=== PATIENT | male | born 1955 | race Caucasian/White ===

== ENCOUNTER 2019-09-24 17:51 | Inpatient (IN) ==
[2019-09-24] MEDS ORDERED: SODIUM CHLORIDE 0.9% 1,000 ML IV STA (18:27)
[2019-09-24 18:51] LABS: Basophils % 0.1 % (0.0-0.8); Eosinophils % 0.1 % (0.00-10.9); Hematocrit 28.2 VOL% (42.0-52.0); Hemoglobin 8.1 GM/DL (14.0-18.0); Immature Granulocytes % 0.9 %; Immature Granulocytes Absolute 0.13 #; Lymphocytes # 0.9 10*3/uL (1.4-4.0); Lymphocytes % 5.7 % (21.2-54.2); Mean Corpuscular HGB Conc 28.7 GM/DL (32-36); Mean Corpuscular Volume 78.8 FL (87-102); Monocytes % 11.6 % (1.7-12.7); NRBC # 0.69 10*3/uL; Neutrophils % 81.6 % (38.7-73.9); Platelet Count 239 T/CUMM (130-400); Red Blood Count 3.58 MC/CUMM (3.8-5.5); Red Cell Distribution Width 19.6 % (9.3-17.3); White Blood Count 15.2 T/CUMM (4-12)
[2019-09-24 19:07] LABS: Albumin 2.7 G/DL (3.4-5.0); Bilirubin,Total 0.4 MG/DL (0.2-1.0); Calcium 9.4 MG/DL (8.5-10.1); Osmolality,Calculated 268.4 MOS/KG (273-304); Total Protein 7.5 G/DL (6.4-8.3)
[2019-09-24 19:43] LABS: Lymphocytes 8 % (20-55); Nucleated Red Blood Cells 3 (0-5); Segmented Neutrophils 81 % (50-85); Total Cells Counted 100
[2019-09-24 19:50] LABS: Anisocytosis 3+; Poikilocytosis 2+
[2019-09-24 19:51] LABS: Hypochromasia 1+; Microcytosis 1+
[2019-09-24 19:52] LABS: Platelet Estimate Normal
[2019-09-24 19:53] LABS: Basophilic Stippling Few; Howell-Jolly Bodies Few; Polychromasia 1+
[2019-09-24 19:54] LABS: Ovalocytes Few; Schistocytes Few
[2019-09-24 19:55] LABS: Atypical Lymphocytes Few
[2019-09-24 20:27] LABS: Apearance,Urine CLOUDY (Clear); Bacteria,Urine Many /HPF (Few); Bilirubin,Urine Small mg/dL (Negative); Blood, Urine Small mg/dL (Negative); Glucose,Urine (UA) Negative (Negative); Ketones,Urine Negative (Negative); Mucus,Urine Few /LPF (Occasional); Nitrite,Urine Negative (Negative); Protein,Urine 30 MG/DL; RBC,Urine 6 /HPF (0-4); Urine Color Dark Yellow (Yellow); Urine Specific Gravity 1.019 (1.001-1.035); WBC,Urine 172 /HPF (0-6)
[2019-09-24] MEDS ORDERED: PIPERACILLIN/TAZOBACTAM 3,375 MG in SODIUM CHLORIDE 0.9% 100 ML IV STA (20:32)
[2019-09-24] MEDS ORDERED: ONDANSETRON 4 MG/2 ML VIAL IV PRN (23:56)
[2019-09-24] MEDS ORDERED: ACETAMINOPHEN 325 MG TABLET PO PRN (23:56)
[2019-09-24] MEDS ORDERED: hydrALAZINE 20 MG/1 ML VIAL IV PRN (23:56)
[2019-09-25 01:14] LABS: Albumin 2.2 G/DL (3.4-5.0); Bilirubin,Total 0.5 MG/DL (0.2-1.0); Calcium 8.9 MG/DL (8.5-10.1); Osmolality,Calculated 269.5 MOS/KG (273-304); Total Protein 6.6 G/DL (6.4-8.3)
[2019-09-25 01:45] LABS: INR 1.1; PT Patient Result 12.3 SECS (9.6-12.2); Partial Thromboplastin Time 37.3 SECS (20.8-36.0)
[2019-09-25 01:46] LABS: Basophils % 0.2 % (0.0-0.8); Eosinophils % 0.1 % (0.00-10.9); Hematocrit 25.2 VOL% (42.0-52.0); Hemoglobin 7.4 GM/DL (14.0-18.0); Immature Granulocytes Absolute 0.14 #; Lymphocytes # 0.7 10*3/uL (1.4-4.0); Lymphocytes % 5.1 % (21.2-54.2); Mean Corpuscular HGB Conc 29.4 GM/DL (32-36); Mean Corpuscular Volume 80.3 FL (87-102); NRBC # 0.64 10*3/uL; Neutrophils % 83.6 % (38.7-73.9); Platelet Count 260 T/CUMM (130-400); Red Blood Count 3.14 MC/CUMM (3.8-5.5); Red Cell Distribution Width 19.9 % (9.3-17.3); White Blood Count 14.6 T/CUMM (4-12)
[2019-09-25] MEDS: PRAMIPEXOLE 0.25 MG TABLET PO SCH ×3 (03:41→22:27)
[2019-09-25] MEDS: SIMVASTATIN 20 MG TABLET PO SCH ×2 (03:42→22:28)
[2019-09-25] MEDS: SODIUM CHLORIDE 0.9% 1,000 ML IV SCH ×2 (03:43→22:26)
[2019-09-25] MEDS: PIPERACILLIN/TAZOBACTAM 3,375 MG in SODIUM CHLORIDE 0.9% 100 ML IV SCH ×3 (05:30→22:29)
[2019-09-25] MEDS: GABAPENTIN 400 MG CAPSULE PO SCH ×3 (10:24→22:26)
[2019-09-25] MEDS: ASPIRIN 325 MG TABLET PO SCH (10:25)
[2019-09-25] MEDS: amLODIPine 5 MG TABLET PO SCH (10:25)
[2019-09-25] MEDS: CLOPIDOGREL 75 MG TABLET PO SCH (10:25)
[2019-09-25] MEDS: ESCITALOPRAM 10 MG TABLET PO SCH (10:25)
[2019-09-25] MEDS: TAMSULOSIN 0.4 MG CAPSULE PO SCH (10:25)
[2019-09-25] MEDS: FAMOTIDINE 20 MG TABLET PO SCH (10:26)
[2019-09-25] MEDS: lisinopriL 20 MG TABLET PO SCH (10:26)
[2019-09-25] MEDS ORDERED: SODIUM CHLORIDE 0.9% 1,000 ML IV PRN (16:25)
[2019-09-26] MEDS: PIPERACILLIN/TAZOBACTAM 3,375 MG in SODIUM CHLORIDE 0.9% 100 ML IV SCH ×3 (05:17→21:19)
[2019-09-26 05:22] LABS: Basophils % 0.2 % (0.0-0.8); Eosinophils % 0.2 % (0.00-10.9); Hematocrit 23.2 VOL% (42.0-52.0); Hemoglobin 6.5 GM/DL (14.0-18.0); Immature Granulocytes % 2.4 %; Immature Granulocytes Absolute 0.39 #; Lymphocytes # 0.8 10*3/uL (1.4-4.0); Lymphocytes % 4.9 % (21.2-54.2); Mean Corpuscular Volume 80.3 FL (87-102); Monocytes % 11.4 % (1.7-12.7); NRBC # 0.48 10*3/uL; Neutrophils % 80.9 % (38.7-73.9); Platelet Count 294 T/CUMM (130-400); Red Blood Count 2.89 MC/CUMM (3.8-5.5); Red Cell Distribution Width 19.7 % (9.3-17.3); White Blood Count 16.3 T/CUMM (4-12)
[2019-09-26 06:02] LABS: Anisocytosis 1+; Band Neutrophils 1 % (0-10); Eosinophils 3 % (0-10); Lymphocytes 3 % (20-55); Nucleated Red Blood Cells 2 (0-5); Segmented Neutrophils 83 % (50-85); Total Cells Counted 100
[2019-09-26 06:03] LABS: Hypochromasia 1+; Ovalocytes 1+; Platelet Estimate Normal; Tear Drop Cells 1+
[2019-09-26 06:10] LABS: Albumin 1.9 G/DL (3.4-5.0); Bilirubin,Total 0.8 MG/DL (0.2-1.0); Calcium 8.6 MG/DL (8.5-10.1); Osmolality,Calculated 270.2 MOS/KG (273-304); Total Protein 6.1 G/DL (6.4-8.3)
[2019-09-26] MEDS: FAMOTIDINE 20 MG TABLET PO SCH (10:42)
[2019-09-26] MEDS: ESCITALOPRAM 10 MG TABLET PO SCH (10:42)
[2019-09-26] MEDS: PRAMIPEXOLE 0.25 MG TABLET PO SCH ×2 (10:43→21:20)
[2019-09-26] MEDS: ASPIRIN 325 MG TABLET PO SCH (10:43)
[2019-09-26] MEDS: CLOPIDOGREL 75 MG TABLET PO SCH (10:43)
[2019-09-26] MEDS: TAMSULOSIN 0.4 MG CAPSULE PO SCH (10:43)
[2019-09-26] MEDS: amLODIPine 5 MG TABLET PO SCH (10:44)
[2019-09-26] MEDS: ENOXAPARIN 40 MG/0.4 ML SYRINGE SUBCUT SCH (10:44)
[2019-09-26] MEDS: lisinopriL 20 MG TABLET PO SCH (10:44)
[2019-09-26] MEDS: GABAPENTIN 400 MG CAPSULE PO SCH ×3 (10:44→21:20)
[2019-09-26 18:00] LABS: Hematocrit 28.6 VOL% (42.0-52.0)
[2019-09-26 18:01] LABS: Hemoglobin 8.4 GM/DL (14.0-18.0)
[2019-09-26] MEDS: SIMVASTATIN 20 MG TABLET PO SCH (21:20)
[2019-09-27 04:50] LABS: Basophils % 0.3 % (0.0-0.8); Eosinophils # 0.1 10*3/uL (0.0-0.87); Eosinophils % 0.5 % (0.00-10.9); Hematocrit 29.9 VOL% (42.0-52.0); Hemoglobin 8.7 GM/DL (14.0-18.0); Immature Granulocytes Absolute 0.31 #; Lymphocytes # 0.7 10*3/uL (1.4-4.0); Lymphocytes % 4.9 % (21.2-54.2); Mean Corpuscular HGB Conc 29.1 GM/DL (32-36); Mean Corpuscular Volume 82.4 FL (87-102); Monocytes % 9.6 % (1.7-12.7); NRBC # 0.45 10*3/uL; Neutrophils % 82.7 % (38.7-73.9); Platelet Count 310 T/CUMM (130-400); Red Blood Count 3.63 MC/CUMM (3.8-5.5); Red Cell Distribution Width 18.6 % (9.3-17.3); White Blood Count 15.1 T/CUMM (4-12)
[2019-09-27 05:14] LABS: Bilirubin,Total 0.8 MG/DL (0.2-1.0); Calcium 8.7 MG/DL (8.5-10.1); Total Protein 6.2 G/DL (6.4-8.3)
[2019-09-27] MEDS: PIPERACILLIN/TAZOBACTAM 3,375 MG in SODIUM CHLORIDE 0.9% 100 ML IV SCH ×2 (05:48→12:21)
[2019-09-27] MEDS: SODIUM CHLORIDE 0.9% 1,000 ML IV SCH (06:00)
[2019-09-27 06:06] LABS: Band Neutrophils 8 % (0-10); Lymphocytes 9 % (20-55); Nucleated Red Blood Cells 7 (0-5); Platelet Estimate Normal; Segmented Neutrophils 73 % (50-85); Total Cells Counted 100
[2019-09-27 06:07] LABS: Anisocytosis 2+; Giant Platelets Few; Polychromasia Slight
[2019-09-27 06:08] LABS: Poikilocytosis Slight
[2019-09-27] MEDS: ENOXAPARIN 40 MG/0.4 ML SYRINGE SUBCUT SCH (08:25)
[2019-09-27] MEDS: CLOPIDOGREL 75 MG TABLET PO SCH (08:26)
[2019-09-27] MEDS: amLODIPine 5 MG TABLET PO SCH (08:26)
[2019-09-27] MEDS: GABAPENTIN 400 MG CAPSULE PO SCH (08:26)
[2019-09-27] MEDS: PRAMIPEXOLE 0.25 MG TABLET PO SCH (08:26)
[2019-09-27] MEDS: FAMOTIDINE 20 MG TABLET PO SCH (08:26)
[2019-09-27] MEDS: ESCITALOPRAM 10 MG TABLET PO SCH (08:26)
[2019-09-27] MEDS: ASPIRIN 325 MG TABLET PO SCH (08:26)
[2019-09-27] MEDS: lisinopriL 20 MG TABLET PO SCH (08:26)
[2019-09-27] MEDS: TAMSULOSIN 0.4 MG CAPSULE PO SCH (08:26)
[2019-09-27 12:20] VITALS: BP 112/58
== END 2019-09-27 15:52 | disposition home or self-care (01) | DRG 699 ==
LOC: N.ED 17:51 → SUATTDRO 22:19 → N.EDINP 22:19 → N.5E 23:17
PROVIDERS: ADMIT Internal Medicine; ATTEND Internal Medicine

== ENCOUNTER 2019-10-01 19:00 | Observation (INO) ==
[2019-10-01] MEDS ORDERED: PHENAZOPYRIDINE 95 MG TABLET PO STA (19:26)
[2019-10-01] MEDS ORDERED: AMPICILLIN/SULBACTAM 3,000 MG in SODIUM CHLORIDE 0.9% 100 ML IV STA (19:26)
[2019-10-01 20:03] LABS: Red Blood Count 3.97 MC/CUMM (3.8-5.5)
[2019-10-01 20:25] LABS: Basophils % 0.2 % (0.0-0.8); Eosinophils # 0.1 10*3/uL (0.0-0.87); Eosinophils % 0.4 % (0.00-10.9); Hematocrit 33.3 VOL% (42.0-52.0); Immature Granulocytes % 2.1 %; Lymphocytes # 0.9 10*3/uL (1.4-4.0); Lymphocytes % 6.5 % (21.2-54.2); Mean Corpuscular HGB Conc 28.2 GM/DL (32-36); Mean Corpuscular Volume 83.9 FL (87-102); Monocytes % 9.3 % (1.7-12.7); NRBC # 0.22 10*3/uL; Neutrophils % 81.5 % (38.7-73.9); Platelet Count 410 T/CUMM (130-400); Red Cell Distribution Width 20.1 % (9.3-17.3); White Blood Count 14.3 T/CUMM (4-12)
[2019-10-01 20:27] LABS: Alanine Aminotransferase 32 U/L (16-61); Albumin 2.4 G/DL (3.4-5.0); Alkaline Phosphatase 189 U/L (45-117); Aspartate Amino Transferase 20 U/L (0-37); Bilirubin,Total < 0.39 MG/DL (0.2-1.0); Blood Urea Nitrogen 21 MG/DL (7-18); Calcium 9.2 MG/DL (8.5-10.1); Estimated Glom Filtration Rate 59 ML/MIN; Glucose 136 MG/DL (74-106); Osmolality,Calculated 272.2 MOS/KG (273-304); Total Protein 6.9 G/DL (6.4-8.3)
[2019-10-01 20:30] LABS: Hemoglobin 9.4 GM/DL (14.0-18.0)
[2019-10-01 20:55] LABS: Apearance,Urine Slightly Hazy (Clear); Bilirubin,Urine Negative (Negative); Blood, Urine Moderate mg/dL (Negative); Glucose,Urine (UA) Negative (Negative); Hyaline Casts,Urine 12 /LPF (0-3); Ketones,Urine Negative (Negative); Mucus,Urine Occasional /LPF (Occasional); Nitrite,Urine Negative (Negative); Protein,Urine Negative; RBC,Urine 79 /HPF (0-4); Squamous Epithelial Cell,Urine Occasional /HPF (0-10); Urine Color Amber (Yellow); Urine Specific Gravity 1.024 (1.001-1.035); WBC,Urine 4 /HPF (0-6)
[2019-10-01 20:59] LABS: Platelet Estimate Increased
[2019-10-01 21:00] LABS: Hypochromasia Slight; Ovalocytes Few
[2019-10-01 21:01] LABS: Giant Platelets Few; Microcytosis Slight
[2019-10-01] MEDS ORDERED: SODIUM CHLORIDE 0.9% 1,000 ML IV STA (21:18)
[2019-10-01] MEDS ORDERED: ACETAMINOPHEN 325 MG TABLET PO PRN (21:23)
[2019-10-01] MEDS ORDERED: ZALEPLON 5 MG CAPSULE PO PRN (21:23)
[2019-10-01] MEDS ORDERED: guaiFENesin/DM ER 600-30 MG TABLET PO PRN (21:23)
[2019-10-01] MEDS ORDERED: ONDANSETRON 4 MG/2 ML VIAL IV PRN (21:23)
[2019-10-01] MEDS ORDERED: DOCUSATE SODIUM 100 MG CAPSULE PO PRN (21:23)
[2019-10-01] MEDS ORDERED: NICOTINE 21 MG/24 HR PATCH TRANSDERM PRN (21:23)
[2019-10-01] MEDS ORDERED: hydrALAZINE 20 MG/1 ML VIAL IV PRN (21:23)
[2019-10-01] MEDS: SODIUM CHLORIDE 0.9% 1,000 ML IV SCH (23:50)
[2019-10-02] MEDS: cefTRIAXone 1,000 MG in SYRINGE 1 EACH IV SCH ×2 (00:45→21:35)
[2019-10-02 07:26] LABS: Calcium 8.8 MG/DL (8.5-10.1); Osmolality,Calculated 270.1 MOS/KG (273-304)
[2019-10-02 07:28] LABS: Basophils % 0.3 % (0.0-0.8); Eosinophils # 0.1 10*3/uL (0.0-0.87); Eosinophils % 0.5 % (0.00-10.9); Hematocrit 32.2 VOL% (42.0-52.0); Immature Granulocytes % 2.3 %; Immature Granulocytes Absolute 0.34 #; Lymphocytes # 0.8 10*3/uL (1.4-4.0); Lymphocytes % 5.6 % (21.2-54.2); Mean Corpuscular HGB Conc 27.6 GM/DL (32-36); Mean Corpuscular Volume 85.2 FL (87-102); Monocytes % 11.4 % (1.7-12.7); NRBC # 0.16 10*3/uL; Neutrophils % 79.9 % (38.7-73.9); Platelet Count 399 T/CUMM (130-400); Red Blood Count 3.78 MC/CUMM (3.8-5.5); Red Cell Distribution Width 20.3 % (9.3-17.3); White Blood Count 14.7 T/CUMM (4-12)
[2019-10-02 07:30] LABS: Giant Platelets Few
[2019-10-02 07:31] LABS: Elliptocytes Few; Hemoglobin 8.9 GM/DL (14.0-18.0); Hypochromasia Slight; Ovalocytes Few; Platelet Estimate Increased
[2019-10-02 07:32] LABS: Anisocytosis 1+; Microcytosis 2+; Poikilocytosis 1+; Polychromasia Slight
[2019-10-02] MEDS ORDERED: ASPIRIN 325 MG TABLET PO SCH (09:00)
[2019-10-02] MEDS ORDERED: TAMSULOSIN 0.4 MG CAPSULE PO SCH (09:00)
[2019-10-02] MEDS ORDERED: PANTOPRAZOLE 40 MG TABLET PO SCH (09:00)
[2019-10-02] MEDS ORDERED: CLOPIDOGREL 75 MG TABLET PO SCH (09:00)
[2019-10-02] MEDS: FAMOTIDINE 20 MG TABLET PO SCH (09:50)
[2019-10-02] MEDS: GABAPENTIN 400 MG CAPSULE PO SCH ×3 (09:50→20:25)
[2019-10-02] MEDS: PRAMIPEXOLE 0.25 MG TABLET PO SCH ×2 (09:50→20:24)
[2019-10-02] MEDS: ESCITALOPRAM 10 MG TABLET PO SCH (09:50)
[2019-10-02] MEDS: amLODIPine 5 MG TABLET PO SCH (09:50)
[2019-10-02] MEDS: lisinopriL 20 MG TABLET PO SCH (09:50)
[2019-10-02] MEDS: ENOXAPARIN 40 MG/0.4 ML SYRINGE SUBCUT SCH (09:51)
[2019-10-02] MEDS ORDERED: LACTULOSE 20 GM/30 ML UDCUP PO ONE (11:48)
[2019-10-02] MEDS: CLOPIDOGREL 75 MG TABLET PO SCH (13:02)
[2019-10-02] MEDS: SODIUM CHLORIDE 0.9% 1,000 ML IV SCH (13:03)
[2019-10-02] MEDS: TAMSULOSIN 0.4 MG CAPSULE PO SCH (20:25)
[2019-10-02] MEDS ORDERED: FINASTERIDE 5 MG TABLET PO SCH (21:00)
[2019-10-02] MEDS ORDERED: SIMVASTATIN 20 MG TABLET PO SCH (21:00)
[2019-10-03] MEDS: SODIUM CHLORIDE 0.9% 1,000 ML IV SCH (00:16)
[2019-10-03 08:42] LABS: Alanine Aminotransferase 19 U/L (16-61); Alkaline Phosphatase 160 U/L (45-117); Aspartate Amino Transferase 14 U/L (0-37); Bilirubin,Total < 0.39 MG/DL (0.2-1.0); Blood Urea Nitrogen 13 MG/DL (7-18); Calcium 8.6 MG/DL (8.5-10.1); Estimated Glom Filtration Rate 93 ML/MIN; Glucose 98 MG/DL (74-106); Osmolality,Calculated 269.1 MOS/KG (273-304); Total Protein 6.1 G/DL (6.4-8.3)
[2019-10-03 08:56] LABS: Basophils % 0.2 % (0.0-0.8); Eosinophils # 0.1 10*3/uL (0.0-0.87); Eosinophils % 0.3 % (0.00-10.9); Hematocrit 31.6 VOL% (42.0-52.0); Immature Granulocytes % 1.9 %; Lymphocytes # 1.1 10*3/uL (1.4-4.0); Lymphocytes % 6.9 % (21.2-54.2); Mean Corpuscular HGB Conc 27.8 GM/DL (32-36); Mean Corpuscular Volume 85.2 FL (87-102); Monocytes % 11.5 % (1.7-12.7); NRBC # 0.18 10*3/uL; Neutrophils % 79.2 % (38.7-73.9); Platelet Count 381 T/CUMM (130-400); Red Blood Count 3.71 MC/CUMM (3.8-5.5); White Blood Count 16.2 T/CUMM (4-12)
[2019-10-03] MEDS ORDERED: ASPIRIN EC 81 MG TABLET PO SCH (09:00)
[2019-10-03 09:09] LABS: Hemoglobin 8.8 GM/DL (14.0-18.0)
[2019-10-03] MEDS: PRAMIPEXOLE 0.25 MG TABLET PO SCH (09:27)
[2019-10-03] MEDS: ESCITALOPRAM 10 MG TABLET PO SCH (09:28)
[2019-10-03] MEDS: lisinopriL 20 MG TABLET PO SCH (09:28)
[2019-10-03] MEDS: CLOPIDOGREL 75 MG TABLET PO SCH (09:28)
[2019-10-03] MEDS: FAMOTIDINE 20 MG TABLET PO SCH (09:28)
[2019-10-03] MEDS: GABAPENTIN 400 MG CAPSULE PO SCH ×2 (09:28→14:44)
[2019-10-03] MEDS: amLODIPine 5 MG TABLET PO SCH (09:28)
[2019-10-03] MEDS: TAMSULOSIN 0.4 MG CAPSULE PO SCH (10:04)
[2019-10-03] MEDS: ENOXAPARIN 40 MG/0.4 ML SYRINGE SUBCUT SCH (10:05)
[2019-10-03 10:27] LABS: Hypochromasia 1+; Microcytosis 2+; Ovalocytes Few
[2019-10-03 10:28] LABS: Platelet Estimate Normal; Spherocytes Slight
[2019-10-03] MEDS ORDERED: MAGNESIUM CITRATE 300 ML BOTTLE PO ONE (11:10)
[2019-10-03] MEDS ORDERED: LINACLOTIDE 145 MCG CAPSULE PO SCH (11:30)
[2019-10-03 17:05] VITALS: BP 116/59
== END 2019-10-03 17:11 | disposition home or self-care (01) ==
LOC: N.EDINP 19:00 → N.ED 19:00 → N.5E 10-02 00:12
PROVIDERS: ADMIT Internal Medicine; ATTEND Internal Medicine

== ENCOUNTER 2019-10-13 10:49 | Inpatient (IN) ==
[2019-10-13] MEDS ORDERED: ONDANSETRON 4 MG/2 ML VIAL IV STA (11:13)
[2019-10-13] MEDS ORDERED: SODIUM CHLORIDE 0.9% 500 ML IV STA (11:13)
[2019-10-13 12:29] LABS: Basophils # 0.1 10*3/uL (0.0-0.2); Basophils % 0.2 % (0.0-0.8); Hematocrit 30.2 VOL% (42.0-52.0); Hemoglobin 8.9 GM/DL (14.0-18.0); Immature Granulocytes % 4.4 %; Lymphocytes # 1.4 10*3/uL (1.4-4.0); Mean Corpuscular HGB Conc 29.5 GM/DL (32-36); Mean Corpuscular Volume 80.7 FL (87-102); Monocytes % 7.1 % (1.7-12.7); NRBC # 0.15 10*3/uL; Neutrophils % 84.3 % (38.7-73.9); Platelet Count 343 T/CUMM (130-400); Red Blood Count 3.74 MC/CUMM (3.8-5.5); Red Cell Distribution Width 21.5 % (9.3-17.3); White Blood Count 34.4 T/CUMM (4-12)
[2019-10-13 12:45] LABS: Band Neutrophils 5 % (0-10); Lymphocytes 3 % (20-55); Platelet Estimate Normal; Segmented Neutrophils 85 % (50-85); Total Cells Counted 100
[2019-10-13 12:46] LABS: Anisocytosis 2+; Giant Platelets 1+; Poikilocytosis Slight; Polychromasia Slight
[2019-10-13 12:49] LABS: Albumin 2.6 G/DL (3.4-5.0); Bilirubin,Total 0.4 MG/DL (0.2-1.0); Osmolality,Calculated 272.8 MOS/KG (273-304); Total Protein 6.8 G/DL (6.4-8.3)
[2019-10-13 13:29] LABS: Apearance,Urine Slightly Hazy (Clear); Bilirubin,Urine Negative (Negative); Blood, Urine Negative (Negative); Glucose,Urine (UA) Negative (Negative); Hyaline Casts,Urine 3 /LPF (0-3); Ketones,Urine Negative (Negative); Mucus,Urine Occasional /LPF (Occasional); Nitrite,Urine Negative (Negative); Protein,Urine Negative; RBC,Urine 2 /HPF (0-4); Squamous Epithelial Cell,Urine Occasional /HPF (0-10); Uric Acid Crystals,Urine Occasional /HPF (<1); Urine Color Yellow (Yellow); Urine Specific Gravity 1.016 (1.001-1.035); Urine Urobilinogen < 2.0 EU/DL (0.2-1.0); WBC,Urine 3 /HPF (0-6)
[2019-10-13] MEDS ORDERED: PIPERACILLIN/TAZOBACTAM 3,375 MG in SODIUM CHLORIDE 0.9% 100 ML IV STA ×2 (13:40→13:42)
[2019-10-13] MEDS ORDERED: SODIUM CHLORIDE 0.9% 100 ML IV ONE (13:42)
[2019-10-13] MEDS ORDERED: PIPERACILLIN/TAZOBACTAM 3,375 MG VIAL IV ONE (13:42)
[2019-10-13] MEDS ORDERED: DEXTROSE 50% 25 GM/50 ML VIAL IV PRN (14:23)
[2019-10-13] MEDS ORDERED: GLUCAGON 1 MG VIAL IM PRN (14:23)
[2019-10-13] MEDS ORDERED: ACETAMINOPHEN 325 MG TABLET PO PRN (14:23)
[2019-10-13] MEDS ORDERED: ONDANSETRON 4 MG/2 ML VIAL IV PRN (14:23)
[2019-10-13] MEDS: cefTRIAXone 2,000 MG in SYRINGE 1 EACH IV SCH (18:20)
[2019-10-13] MEDS ORDERED: MORPHINE 4 MG/1 ML VIAL IV PRN (21:52)
[2019-10-14 06:03] LABS: Basophils # 0.1 10*3/uL (0.0-0.2); Basophils % 0.2 % (0.0-0.8); Hematocrit 31.9 VOL% (42.0-52.0); Hemoglobin 9.5 GM/DL (14.0-18.0); Immature Granulocytes % 6.6 %; Immature Granulocytes Absolute 2.59 #; Lymphocytes # 1.3 10*3/uL (1.4-4.0); Lymphocytes % 3.2 % (21.2-54.2); Mean Corpuscular HGB Conc 29.8 GM/DL (32-36); Monocytes % 7.1 % (1.7-12.7); NRBC # 0.22 10*3/uL; Neutrophils % 82.9 % (38.7-73.9); Platelet Count 180 T/CUMM (130-400); Red Blood Count 3.94 MC/CUMM (3.8-5.5); Red Cell Distribution Width 21.7 % (9.3-17.3); White Blood Count 39.2 T/CUMM (4-12)
[2019-10-14 06:29] LABS: Band Neutrophils 2 % (0-10); Hypochromasia 1+; Lymphocytes 2 % (20-55); Ovalocytes Slight; Platelet Estimate Adequate; Segmented Neutrophils 91 % (50-85); Total Cells Counted 100
[2019-10-14 06:30] LABS: Microcytosis 1+
[2019-10-14 06:38] LABS: Osmolality,Calculated 271.9 MOS/KG (273-304)
[2019-10-14] MEDS ORDERED: ALBUMIN 25% 12.5 GM/50 ML VIAL IV ONE (13:09)
[2019-10-14] MEDS ORDERED: ALBUMIN 25% 12.5 GM in PREMIX 1 EACH IV ONE (13:15)
[2019-10-14] MEDS: cefTRIAXone 2,000 MG in SYRINGE 1 EACH IV SCH (17:08)
[2019-10-14] MEDS ORDERED: ALBUMIN 25% 50 GM in PREMIX 1 EACH IV ONE (22:05)
[2019-10-15 06:26] LABS: Apearance,Urine CLOUDY (Clear); Bilirubin,Urine Negative (Negative); Blood, Urine Negative (Negative); Glucose,Urine (UA) Negative (Negative); Hyaline Casts,Urine 11 /LPF (0-3); Ketones,Urine 5 mg/dL (Negative); Nitrite,Urine Negative (Negative); Protein,Urine Negative; Squamous Epithelial Cell,Urine Occasional /HPF (0-10); Uric Acid Crystals,Urine Occasional /HPF (<1); Urine Color Amber (Yellow); Urine Specific Gravity 1.018 (1.001-1.035); Urine Urobilinogen < 2.0 EU/DL (0.2-1.0); WBC,Urine 6 /HPF (0-6)
[2019-10-15] MEDS: SODIUM CHLORIDE 0.9% 1,000 ML IV SCH ×2 (12:09→21:25)
[2019-10-15] MEDS: ENOXAPARIN 80 MG/0.8 ML SYRINGE SUBCUT SCH ×2 (12:09→21:25)
[2019-10-15 12:57] LABS: Basophils # 0.1 10*3/uL (0.0-0.2); Basophils % 0.2 % (0.0-0.8); Eosinophils # 0.1 10*3/uL (0.0-0.87); Eosinophils % 0.1 % (0.00-10.9); Hematocrit 28.7 VOL% (42.0-52.0); Hemoglobin 8.5 GM/DL (14.0-18.0); Immature Granulocytes % 6.6 %; Immature Granulocytes Absolute 3.39 #; Lymphocytes # 1.2 10*3/uL (1.4-4.0); Lymphocytes % 2.4 % (21.2-54.2); Mean Corpuscular HGB Conc 29.6 GM/DL (32-36); Mean Corpuscular Volume 81.1 FL (87-102); Monocytes % 5.4 % (1.7-12.7); NRBC # 0.58 10*3/uL; Neutrophils % 85.3 % (38.7-73.9); Platelet Count 166 T/CUMM (130-400); Red Blood Count 3.54 MC/CUMM (3.8-5.5); Red Cell Distribution Width 21.7 % (9.3-17.3)
[2019-10-15 12:59] LABS: White Blood Count 51.1 T/CUMM (4-12)
[2019-10-15 13:10] LABS: Calcium 8.9 MG/DL (8.5-10.1); Osmolality,Calculated 281.7 MOS/KG (273-304)
[2019-10-15 13:18] LABS: Anisocytosis 2+; Band Neutrophils 19 % (0-10); Lymphocytes 1 % (20-55); Metamyelocytes 3 %; Nucleated Red Blood Cells 3 (0-5); Platelet Estimate Normal; Poikilocytosis 1+; Segmented Neutrophils 71 % (50-85); Total Cells Counted 100
[2019-10-15 13:19] LABS: Macrocytosis 2+; Tear Drop Cells Few
[2019-10-15 13:20] LABS: Giant Platelets Few
[2019-10-15] MEDS: LACTULOSE 20 GM/30 ML UDCUP PO SCH ×2 (16:45→21:25)
[2019-10-15] MEDS ORDERED: WARFARIN 10 MG TABLET PO SCH (18:00)
[2019-10-15] MEDS ORDERED: FINASTERIDE 5 MG TABLET PO SCH (21:00)
[2019-10-15] MEDS ORDERED: RUXOLITINIB 10 MG PO SCH (21:00)
[2019-10-15] MEDS ORDERED: SIMVASTATIN 20 MG TABLET PO SCH (21:00)
[2019-10-16 06:13] LABS: Basophils # 0.1 10*3/uL (0.0-0.2); Basophils % 0.2 % (0.0-0.8); Eosinophils # 0.1 10*3/uL (0.0-0.87); Eosinophils % 0.2 % (0.00-10.9); Hemoglobin 7.8 GM/DL (14.0-18.0); Immature Granulocytes % 7.4 %; Immature Granulocytes Absolute 4.13 #; Lymphocytes # 1.4 10*3/uL (1.4-4.0); Lymphocytes % 2.4 % (21.2-54.2); Mean Corpuscular HGB Conc 28.4 GM/DL (32-36); Mean Corpuscular Volume 84.1 FL (87-102); Monocytes % 3.2 % (1.7-12.7); NRBC # 0.63 10*3/uL; Neutrophils % 86.6 % (38.7-73.9); Platelet Count 133 T/CUMM (130-400); Red Blood Count 3.27 MC/CUMM (3.8-5.5); Red Cell Distribution Width 21.8 % (9.3-17.3)
[2019-10-16 06:18] LABS: White Blood Count 55.5 T/CUMM (4-12)
[2019-10-16 06:19] LABS: Hematocrit 27.5 VOL% (42.0-52.0)
[2019-10-16 06:32] LABS: Osmolality,Calculated 286.7 MOS/KG (273-304)
[2019-10-16 07:12] VITALS: BP 88/56
[2019-10-16] MEDS ORDERED: SODIUM CHLORIDE 0.9% 250 ML IV ONE (07:26)
[2019-10-16] MEDS ORDERED: SODIUM BICARBONATE 50 MEQ/50 ML SYRINGE IV ONE (07:27)
[2019-10-16] MEDS ORDERED: EPINEPHrine 1 MG/10 ML SYRINGE ONE (07:27)
[2019-10-16] MEDS ORDERED: CALCIUM CHLORIDE 1,000 MG/10 ML SYRINGE IV ONE (07:27)
[2019-10-16 08:57] LABS: Band Neutrophils 15 % (0-10); Nucleated Red Blood Cells 1 (0-5); Segmented Neutrophils 84 % (50-85); Total Cells Counted 100
[2019-10-16 08:58] LABS: Elliptocytes Few; Hypochromasia 3+; Ovalocytes Few; Platelet Estimate Adequate; Polychromasia Slight; Schistocytes Slight
[2019-10-16] MEDS ORDERED: TAMSULOSIN 0.4 MG CAPSULE PO SCH (09:00)
== END 2019-10-16 07:53 | disposition expired | DRG 814 ==
LOC: EDBD → EDUNIT# → N.ED 10:49 → N.EDINP 14:23 → INTOOBSV 14:23 → OBSVTOIN 14:23 → N.EDINP 15:22 → N.5E 15:29
PROVIDERS: ADMIT Internal Medicine Geriatric Medicine; ATTEND Internal Medicine Geriatric Medicine